=== PATIENT | female | born 1930 | race Caucasian/White ===

== ENCOUNTER 2017-12-22 10:41 | Inpatient (IN) | payer OTHER ==
[~2017-12-22] VITALS: Ht 167.6 cm; Wt 70.3 kg
[2017-12-22] MEDS ORDERED: Cefepime HCl 2 GM in NS 110 ML IV STA (10:45)
[2017-12-22] MEDS ORDERED: Ipratropium 0.02% Inh Soln 2.5ml UD HHN ONE (10:45)
[2017-12-22] MEDS ORDERED: Acetaminophen 650 MG SUPP RECTAL ONE (10:45)
[2017-12-22 10:54] VITALS: BP 157/96
[2017-12-22] MEDS: Albuterol ud Inhalation HHN SCH ×5 (11:05→22:30)
[2017-12-22 11:54] LABS: HEMATOCRIT 39.2 % (37.0-47.0); HEMOGLOBIN 12.5 G/DL (12.0-16.0); MEAN CORPUSCULAR VOLUME 90 FL (80-99); PLATELET COUNT 187 K/UL (150-450); RED BLOOD COUNT 4.34 M/UL (4.20-5.40); RED CELL DISTRIBUTION WIDTH 13.9 % (11.6-14.8)
[2017-12-22 12:02] LABS: ANION GAP 7 mmol/L (5-15); BLOOD UREA NITROGEN 32 mg/dL (7-18); CARBON DIOXIDE 27 MMOL/L (21-32); CHLORIDE 105 MMOL/L (98-107); CREATININE 1.2 MG/DL (0.55-1.30); POTASSIUM 5.3 MMOL/L (3.5-5.1); SODIUM 139 MMOL/L (136-145)
[2017-12-22 12:10] LABS: APPEARANCE,URINE TURBID; BILIRUBIN, URINE NEGATIVE (NEGATIVE); COLOR,URINE PALE YELLOW; GLUCOSE, URINE (UA) 2+ (NEGATIVE); KETONES,URINE NEGATIVE (NEGATIVE); LEUKOCYTE ESTERASE ,URINE 2+ (NEGATIVE); NITRITE,URINE NEGATIVE (NEGATIVE); PH,URINE 5 (4.5-8.0); PROTEIN,URINE 1+ (NEGATIVE); UROBILINOGEN,URINE NORMAL MG/DL (0.0-1.0)
[2017-12-22 12:13] LABS: ALANINE AMINOTRANSFERASE 28 U/L (12-78); ALBUMIN 2.9 G/DL (3.4-5.0); ALBUMIN/GLOBULIN RATIO 0.7 (1.0-2.7); ALKALINE PHOSPHATASE 98 U/L (46-116); ASPARTATE AMINO TRANSFERASE 34 U/L (15-37); BILIRUBIN,TOTAL 0.6 MG/DL (0.2-1.0); CREATINE KINASE 106 U/L (26-308)
[2017-12-22 12:44] VITALS: BP 139/81
[2017-12-22] MEDS ORDERED: HUMALOG100 UNIT/4 SUBQ (13:29)
[2017-12-22] MEDS ORDERED: ZYPREXA5 MG ORAL ×2 (13:29)
[2017-12-22] MEDS ORDERED: MIRTAZAPINE15 M3 ORAL (13:29)
[2017-12-22] MEDS ORDERED: IPRATROPIU0.2 MG/1 M HHN (13:29)
[2017-12-22] MEDS ORDERED: XOPENEX0.5 MG HHN (13:29)
[2017-12-22] MEDS ORDERED: FLORASTOR250 MG ORAL (13:29)
[2017-12-22] MEDS ORDERED: ADVAIR 250-501 EACH INH (13:29)
[2017-12-22] MEDS ORDERED: LOPRESSOR25 M1 ORAL (13:29)
[2017-12-22] MEDS ORDERED: AMIODARONE HCL400 M1 ORAL (13:29)
[2017-12-22] MEDS ORDERED: ALBUTEROL2.5 MG/3 M INH (13:29)
[2017-12-22 13:30] VITALS: BP 119/68
--- NOTE | 2017-12-22 14:13 | Diagnostic Imaging Report ---
Indication: Shortness of breath, respiratory distress Technique: One view of the chest Comparison: None Findings: Dense consolidation is seen in the left midlung equivocal areas of interstitial opacity are seen in the right lung. Right lung otherwise clear. Pleural spaces are clear. Impression: Left midlung infiltrate, suspect pneumonia
[2017-12-22] MEDS ORDERED: Levalbuterol Inh UD 1.25mg/0.5ml HHN PRN (15:30)
[2017-12-22] MEDS ORDERED: Ipratropium 0.02% Inh Soln 2.5ml UD HHN PRN (15:30)
[2017-12-22 16:00] VITALS: BP 96/58
[2017-12-22] MEDS ORDERED: cefTRIAXone 1 GM in D5W 55 ML IVPB SCH (17:00)
[2017-12-22] MEDS: NovoLOG Insulin Flexpen SUBQ SCH ×2 (17:03→21:52)
[2017-12-22 20:00] VITALS: BP 100/44
[2017-12-22] MEDS ORDERED: Milk of Magnesia 30ml Ud ORAL PRN (21:00)
[2017-12-22] MEDS ORDERED: Zolpidem 5mg tab ORAL PRN (21:00)
[2017-12-22] MEDS ORDERED: Advair 250/50 Inhaler - 14 dose INH SCH (21:00)
[2017-12-22] MEDS ORDERED: Vancomycin 1gm in D5W 275ml IVPB SCH (21:00)
[2017-12-22] MEDS: OLANZapine 2.5mg tab ORAL SCH (21:47)
[2017-12-22] MEDS: Heparin 5000 units/ml inj SUBQ SCH (21:51)
[2017-12-22] MEDS: Piperacillin/Tazobactam 3.375 GM in NS 110 ML IVPB SCH (22:57)
[2017-12-23] VITALS: BP 98/36
--- NOTE | 2017-12-23 00:23 | Emergency Room Report ---
History of Present Illness General Chief Complaint: Dyspnea/Respdistress Source: Family Member, EMS Present Illness HPI Patient being treated for UTI on Bactrim. Today noted to have cough, decreased O2 sat and AMS. Patient unable to provide history. Glucose not low in field. Distant h/o smoking. H/O dementia. Last hospitalization had difficulty with agitation. DNR - selective treatment - not intubate or CPR. Daughter POA. No other hx available. Allergies: Coded Allergies: FLUTICASONE (Verified Allergy, Unknown, 12/22/17) SALMETEROL (Verified Allergy, Unknown, 12/22/17) Patient History Past Medical History: see triage record Past Surgical History: hysterectomy Social History: Reports: smoking - prior Social History Narrative SNF Last Menstrual Period: Post Now: No Reviewed Nursing Documentation: PMH: Agreed; PSxH: Agreed Nursing Documentation-PMH Past Medical History: No History, Except For Hx Cardiac Problems: Yes Hx Hypertension: Yes Hx Asthma: Yes Hx COPD: Yes - 3 decades chainsmoker Hx Diabetes: Yes Hx Gastrointestinal Problems: Yes Hx Neurological Problems: Yes - dementia Hx Cerebrovascular Accident: No Hx Transient Ischemic Attacks: No Hx Dementia: Yes Hx Alzheimer's Disease: No Hx Parkinson's Disease: No Hx Meningitis: No Hx Encephalitis: No Hx Seizures: No Hx Epilepsy: No Hx Multiple Sclerosis: No Hx Cerebral Palsy: No Hx Amyotrophic Lat Sclerosis: No Hx Guillian-Concord Syndrome: No Hx Paralysis: No Hx Peripheral Neuropathy: No Hx Spinal Cord Injury: No Hx Head Trauma: No Hx Traumatic Brain Injury: No Hx Memory Loss: Yes - dementia Hx Concentration Difficulty: Yes Hx Speech Problem: Yes Hx Tremors: No Hx Vertigo: Yes Hx Dizziness: Yes Hx Syncope: Yes Hx Headaches: No Hx Aphasia: Yes Hx Dysphasia: Yes Hx Numbness: No Hx Weakness: Yes Hx Fatigue: Yes Hx Neurologic Surgery: No Hx Brain Shunt: No Physical Exam Vital Signs Date Time Temp Pulse Resp B/P (MAP) Pulse Ox O2 Delivery O2 Flow Rate FiO2 12/22/17 10:44 101.9 85 18 158/52 96 Nasal Cannula 4.0 101.8 12/22/17 11:05 40 Sp02 EP Interpretation: reviewed, abnormal - interpreted as low by me General Appearance: moderate distress, obese, Chronically Ill, Stupor Eyes: bilateral eye normal inspection, bilateral eye PERRL ENT: moist mucus membranes Neck: supple Respiratory: crackles, rales, rhonchi, wheezing, expiration, other - poor tidal volume Cardiovascular #1: regular rate, rhythm, edema - trace bilat Cardiovascular #2: 2+ radial (L) Gastrointestinal: soft, decreased bowel sounds, overweight Musculoskeletal: decreased range of motion, other - moving hands Neurologic: other - lethargic, min resonse to pain (but does), ebulic Psychiatric: other - stupor Reflexes: 1+ knee (R), 1+ knee (L) Skin: cyanosis, other - sallo, hot Procedures Critical Care Time Critical Care Time Total Critical Care Time: 30 min bedside evaluation and treatment excludes procedures (EKG). Reason for critical care: respiratory failure, BIPAP, pneumonia, discussion of level of care with daughter Possible complications: hypotension, hypertension, UT, shock, arrhythmias, metabolic acidosis, end organ damage, respiratory failure. Interventions: BIPAP, breathing treatments, antibiotics, antipyretics and hydration Course: Patient with hypopnea, rales and fever. Immediate BIPAP with fair stabilization of sats and breathing. Pneumonia on CXR and antibiotics begun. Discussion with daughter regarding illness and level of care (several discussions). Improved but serious on repeat re-evaluations. Consultations: nursing staff, EMS, family, RT, admitting MD Performed by: Dr. Santamaria Tolerated well condition = critical Medical Decision Making Diagnostic Impression: Primary Impression: Pneumonia Qualified Codes: J18.1 - Lobar pneumonia, unspecified organism Additional Impression: COPD exacerbation ER Course Patient presents with hypoxia, fever and cough. DDX: pneumonia, sepsis, bronchitis, exacerbation of COPD, AMI amongst others. Respiratory insufficiency identified and BIPAP begun immediately. EKG, CXR, labs with cultures and lactate ordered. Breathing treatments and antibiotics ordered due to clinical presentation. Significant hydration (but not excessive) ordered. Level of care discussed with daughter. Tylenol given. EKG artifact, but no injury. CXR with L infiltrate. Labs with elevated WBC, high normal lactate, min elevated K, elevated BUN, pyuria, normal troponin. Improved on BIPAP. Fever more elevated. Increased hydration with bolus. Fever slightly better. Discussed grave prognosis with daughter. Admit JOAQUIN (due to BIPAP), Dr. Miller. Laboratory Tests Test 12/22/17 11:30 12/22/17 11:40 12/22/17 13:05 12/22/17 20:01 White Blood Count 15.0 K/UL (4.8-10.8) H Red Blood Count 4.34 M/UL (4.20-5.40) Hemoglobin 12.5 G/DL (12.0-16.0) Hematocrit 39.2 % (37.0-47.0) Mean Corpuscular Volume 90 FL (80-99) Mean Corpuscular Hemoglobin 28.9 PG (27.0-31.0) Mean Corpuscular Hemoglobin Concent 31.9 G/DL (32.0-36.0) L Red Cell Distribution Width 13.9 % (11.6-14.8) Platelet Count 187 K/UL (150-450) Mean Platelet Volume 9.1 FL (6.5-10.1) Neutrophils (%) (Auto) % (45.0-75.0) Lymphocytes (%) (Auto) % (20.0-45.0) Monocytes (%) (Auto) % (1.0-10.0) Eosinophils (%) (Auto) % (0.0-3.0) Basophils (%) (Auto) % (0.0-2.0) Differential Total Cells Counted 100 Neutrophils % (Manual) 79 % (45-75) H Lymphocytes % (Manual) 6 % (20-45) L Monocytes % (Manual) 7 % (1-10) Eosinophils % (Manual) 3 % (0-3) Basophils % (Manual) 0 % (0-2) Band Neutrophils 5 % (0-8) Nucleated Red Blood Cells 1 /100 WBC Platelet Estimate Adequate Platelet Morphology Normal Hypochromasia 1+ Prothrombin Time 10.4 SEC (9.30-11.50) Prothrombin Time INR 1.0 (0.9-1.1) PTT 28 SEC (23-33) Sodium Level 139 MMOL/L (136-145) Potassium Level 5.3 MMOL/L (3.5-5.1) H Chloride Level 105 MMOL/L (98-107) Carbon Dioxide Level 27 MMOL/L (21-32) Anion Gap 7 mmol/L (5-15) Blood Urea Nitrogen 32 mg/dL (7-18) H Creatinine 1.2 MG/DL (0.55-1.30) Estimate Glomerular Filtration Rate mL/min (>60) Glucose Level 299 MG/DL (74-106) H Lactic Acid Level 2.10 mmol/L (0.66-2.22) 3.00 mmol/L (0.66-2.22) H Calcium Level 9.0 MG/DL (8.5-10.1) Total Bilirubin 0.6 MG/DL (0.2-1.0) Aspartate Amino Transferase (AST) 34 U/L (15-37) Alanine Aminotransferase (ALT) 28 U/L (12-78) Alkaline Phosphatase 98 U/L (46-116) Total Creatine Kinase 106 U/L (26-308) Troponin I 0.000 ng/mL (0.000-0.056) Pro-B-Type Natriuretic Peptide 2009 pg/mL (0-125) H Total Protein 7.1 G/DL (6.4-8.2) Albumin 2.9 G/DL (3.4-5.0) L Globulin 4.2 g/dL Albumin/Globulin Ratio 0.7 (1.0-2.7) L Urine Color Pale yellow Urine Appearance Turbid Urine pH 5 (4.5-8.0) Urine Specific [place] 1.010 (1.005-1.035) Urine Protein 1+ (NEGATIVE) H Urine Glucose (UA) 2+ (NEGATIVE) H Urine Ketones Negative (NEGATIVE) Urine Occult Blood 1+ (NEGATIVE) H Urine Nitrite Negative (NEGATIVE) Urine Bilirubin Negative (NEGATIVE) Urine Urobilinogen Normal MG/DL (0.0-1.0) Urine Leukocyte Esterase 2+ (NEGATIVE) H Urine RBC 2-4 /HPF (0 - 2) H Urine WBC 5-10 /HPF (0 - 2) H Urine Squamous Epithelial Cells Moderate /LPF (NONE/OCC) H Urine Bacteria Few /HPF (NONE) Arterial Blood pH 7.420 (7.350-7.450) Arterial Blood Partial Pressure CO2 35.0 mmHg (35.0-45.0) Arterial Blood Partial Pressure O2 56.1 mmHg (75.0-100.0) L Arterial Blood HCO3 22.3 mmol/L (22.0-26.0) Arterial Blood Oxygen Saturation 90.2 % (92.0-98.0) L Arterial Blood Base Excess -1.7 Alvino Test Positive Microbiology Date/Time Source Procedure Growth Status 12/22/17 11:40 Nasal Nares Influenza Types A,B Antigen (JIMY) - Final Complete EKG Diagnostic Results Rate: normal Rhythm: NSR ST Segments: no acute changes - artifact without STEMI Rhythm Strip Diag. Results EP Interpretation: yes Rhythm: NSR, no PVC's, no ectopy Chest X-Ray Diagnostic Results Chest X-Ray Diagnostic Results : Chest X-Ray Ordered: Yes # of Views/Limited/Complete: 1 View Indication: Shortness of Breath EP Interpretation: Yes Interpretation: no effusion, no pneumothorax, other - L upper infiltrate Impression: Other Electronically Signed by: Zachery Santamaria MD Last Vital Signs Date Time Temp Pulse Resp B/P (MAP) Pulse Ox O2 Delivery O2 Flow Rate FiO2 12/22/17 22:42 82 24 100 Bi-pap 80 12/22/17 20:00 98.4 100/44 98.4 12/22/17 11:04 3.0 Status: improved Disposition: ADMITTED INPATIENT Condition: Critical Referrals: NON PHYSICIAN (PCP) Zachery Santamaria M.D. Dec 23, 2017 00:23
--- NOTE | 2017-12-23 00:45 | History and Physical Report ---
DATE OF ADMISSION: 12/22/2017 REASON FOR ADMISSION: Pneumonia. HISTORY OF PRESENT ILLNESS: The patient is an 87-year-old female admitted for evidence of pneumonia on x-ray. The patient was seen and evaluated through the emergency room. The patient was brought in by the emergency medical from a [facility] for altered mental status, concerned for UTI, and also for low oxygen saturation. The patient also had a temperature of 101.5 degrees. The patient is alert and oriented x1 only. The patient's care discussed and reviewed. The patient's labs reviewed. The patient now being admitted for IV antibiotics and further management. PAST MEDICAL HISTORY: Notable for dysrhythmias, possible underlying obstructive lung disease, diabetes, and dementia with some psychotic features. MEDICATIONS: Reviewed. ALLERGIES: Reviewed. SOCIAL HISTORY: She resides in a [facility] facility. PHYSICAL EXAMINATION: GENERAL: The patient is an advanced age female, admitted for further care and management. VITAL SIGNS: The patient's vital signs reviewed and currently stable. The patient is currently on BiPAP on high FiO2. The blood pressure is 96/58. HEENT: Negative. LUNGS: Coarse rhonchi. CARDIAC: S1 and S2 distant. ABDOMEN: Soft. EXTREMITIES: No cyanosis. NEUROLOGICAL: Confused. LABORATORY DATA: Reviewed. White count 16. Chemistry is noted. Potassium 5.3. The BUN 32 and creatinine 1.2. X-ray with evidence of pneumonia. IMPRESSION: 1. Pneumonia, likely [facility]p acquired. 2. Leukocytosis, possible sepsis. 3. Mild hyperkalemia. 4. Acute renal failure. 5. History of chronic encephalopathy. RECOMMENDATIONS: Supportive care. We will maximize antibiotics as the patient is a mcfp patient. We will provide gram-negative and gram-positive coverage and respiratory care. We will obtain arterial blood gases, cultures and recommendations and monitor for further change in any further deterioration. Obtain swallow evaluation and BiPAP off as tolerated. Ceferino Miller M.D. DR: Beverly JOB#: [id number] CC:
[2017-12-23] MEDS: Albuterol ud Inhalation HHN SCH ×6 (03:25→22:29)
[2017-12-23 04:00] VITALS: BP 89/48
[2017-12-23] MEDS: Piperacillin/Tazobactam 3.375 GM in NS 110 ML IVPB SCH ×3 (06:06→22:20)
[2017-12-23] MEDS: NovoLOG Insulin Flexpen SUBQ SCH ×3 (06:35→18:13)
[2017-12-23 08:00] VITALS: BP 104/46
[2017-12-23 08:17] LABS: HEMOGLOBIN 9.9 G/DL (12.0-16.0); MEAN CORPUSCULAR VOLUME 90 FL (80-99); PLATELET COUNT 204 K/UL (150-450); RED BLOOD COUNT 3.46 M/UL (4.20-5.40); RED CELL DISTRIBUTION WIDTH 14.3 % (11.6-14.8)
[2017-12-23 08:21] LABS: WHITE BLOOD COUNT 32.7 K/UL (4.8-10.8)
[2017-12-23 08:29] LABS: ANION GAP 5 mmol/L (5-15); BLOOD UREA NITROGEN 40 mg/dL (7-18); CALCIUM 8.2 MG/DL (8.5-10.1); CARBON DIOXIDE 26 MMOL/L (21-32); CHLORIDE 109 MMOL/L (98-107); CREATININE 1.7 MG/DL (0.55-1.30); SODIUM 140 MMOL/L (136-145)
[2017-12-23] MEDS: OLANZapine 2.5mg tab ORAL SCH ×2 (09:00→22:11)
[2017-12-23] MEDS: Amiodarone 200mg tab ORAL SCH ×2 (09:00→12:56)
[2017-12-23] MEDS: Heparin 5000 units/ml inj SUBQ SCH ×2 (09:26→22:14)
--- NOTE | 2017-12-23 11:03 | Diagnostic Imaging Report ---
. Indication: NG tube placement Technique: XRAY Abdomen 1v Comparison: None Findings: There are 2 courses below level of diaphragms, tip and side port in the expected region of the stomach. Bowel gas pattern is nonspecific with overall paucity of bowel gas on the right. There is scoliosis and degenerative change of the spine. There is dense consolidation in the left lower lung, similar to prior chest radiograph. Impression: NG tube tip and side-port in the expected region of the stomach. Dense consolidation of the left lower lung.
--- NOTE | 2017-12-23 11:07 | Diagnostic Imaging Report ---
Indication: Dyspnea Technique: XRAY Chest 1v Comparison: 12/22/2018 Findings: Interval worsening of aeration with increasing opacity of the left mid and lower lung. Left-sided pleural fluid or atelectasis not excluded. The left heart border is obscured now. There are degenerative changes of the spine and shoulders. No acute osseous abnormality appreciated. Impression: Interval worsening of aeration with increasing confluent left mid/lower lung consolidation, most likely related to worsening pneumonia. Some current pleural fluid or left-sided atelectasis not excluded. Clinical correlation and follow-up exam recommended.
[2017-12-23 12:00] VITALS: BP 107/47
--- NOTE | 2017-12-23 15:00 | General Progress Note ---
Assessment/Plan Assessment/Plan 1. Pneumonia, likely snf acquired. 2. Leukocytosis, possible sepsis. 3. Mild hyperkalemia. 4. Acute renal failure. 5. History of chronic encephalopathy. PLAN NPO NGT feeds IV antibiotics ID evaluation BIPAP for now DVT prophylaxis monitor for change guarded Subjective Allergies: Coded Allergies: FLUTICASONE (Verified Allergy, Unknown, 12/22/17) SALMETEROL (Verified Allergy, Unknown, 12/22/17) Subjective unable on BIPAP d/w daughter update given DNR Objective Last 24 Hour Vital Signs Date Time Temp Pulse Resp B/P (MAP) Pulse Ox O2 Delivery O2 Flow Rate FiO2 12/23/17 12:40 76 19 98 Full Face 85 12/23/17 12:00 98.8 76 19 107/47 95 Bi-pap 80 98.8 12/23/17 12:00 85 12/23/17 12:00 73 12/23/17 11:00 76 20 95 Bi-pap 85 12/23/17 10:50 75 20 98 Bi-pap 85 12/23/17 10:45 75 20 98 Full Face 85 12/23/17 09:06 75 22 98 Facial 85 12/23/17 08:00 55 12/23/17 08:00 98.6 75 18 104/46 95 Bi-pap 80 98.6 12/23/17 08:00 85 12/23/17 07:32 86 16 95 Bi-pap 85 12/23/17 07:22 76 16 92 Bi-pap 85 12/23/17 07:20 76 16 92 Facial 85 12/23/17 04:52 83 22 96 Facial 70 12/23/17 04:12 82 12/23/17 04:00 98.0 85 20 89/48 95 Bi-pap 80 98.0 12/23/17 04:00 80 12/23/17 03:35 78 23 97 Bi-pap 70 12/23/17 03:24 78 23 97 Bi-pap 70 12/23/17 03:23 78 23 98 Facial 70 12/23/17 00:55 79 19 98 Facial 70 12/23/17 00:00 80 12/23/17 00:00 98.0 84 20 98/36 99 Bi-pap 80 98.0 12/22/17 23:44 79 12/22/17 22:42 82 24 100 Bi-pap 80 12/22/17 22:32 83 25 100 Bi-pap 80 12/22/17 22:31 83 25 100 Facial 80 12/22/17 20:55 89 23 93 Facial 80 12/22/17 20:00 98.4 86 26 100/44 95 Bi-pap 80 98.4 12/22/17 19:31 85 23 96 Bi-pap 70 12/22/17 19:22 83 24 94 Bi-pap 70 12/22/17 19:20 83 24 94 Facial 70 12/22/17 19:05 87 12/22/17 16:50 88 24 95 Facial 80 12/22/17 16:00 80 12/22/17 16:00 88 12/22/17 16:00 97.5 89 22 96/58 100 Bi-pap 80 97.5 12/22/17 15:22 92 27 93 Facial 80 Intake and Output 12/22/17 12/23/17 19:00 07:00 Intake Total 1055 ml 134.8 ml Output Total 150 ml Balance 905 ml 134.8 ml Intake IV Total 1055 ml 134.8 ml Output Urine Total 150 ml # Voids 1 2 Laboratory Tests 12/22/17 20:01: Arterial Blood pH 7.420, Arterial Blood Partial Pressure CO2 35.0, Arterial Blood Partial Pressure O2 56.1L, Arterial Blood HCO3 22.3, Arterial Blood Oxygen Saturation 90.2L, Arterial Blood Base Excess -1.7, Alvino Test Positive 12/23/17 08:00: White Blood Count 32.7#*H, Red Blood Count 3.46L, Hemoglobin 9.9L, Hematocrit 31.0L, Mean Corpuscular Volume 90, Mean Corpuscular Hemoglobin 28.7, Mean Corpuscular Hemoglobin Concent 32.0, Red Cell Distribution Width 14.3, Platelet Count 204, Mean Platelet Volume 8.0, Neutrophils (%) (Auto) , Lymphocytes (%) ( Auto) , Monocytes (%) (Auto) , Eosinophils (%) (Auto) , Basophils (%) (Auto) , Differential Total Cells Counted 100, Neutrophils % (Manual) 77H, Lymphocytes % (Manual) 4L, Monocytes % (Manual) 11H, Eosinophils % (Manual) 0, Basophils % ( Manual) 0, Band Neutrophils 8, Platelet Estimate Adequate, Platelet Morphology Normal, Hypochromasia 1+, Anisocytosis 1+, Sodium Level 140, Potassium Level 4.0 , Chloride Level 109H, Carbon Dioxide Level 26, Anion Gap 5, Blood Urea Nitrogen 40H, Creatinine 1.7H, Estimat Glomerular Filtration Rate , Glucose Level 173#H, Calcium Level 8.2L 12/23/17 08:02: Arterial Blood pH 7.410, Arterial Blood Partial Pressure CO2 38.6, Arterial Blood Partial Pressure O2 63.9L, Arterial Blood HCO3 24.2, Arterial Blood Oxygen Saturation 92.8, Arterial Blood Base Excess -0.2, Alvino Test Positive 12/23/17 09:15: Lactic Acid Level 2.20 12/23/17 11:30: Legionella pneumophila Group 1 Ab [Pending], Legionella pneumophilia IgM Group 1 [Pending], Mycoplasma pneumoniae IgG Antibody [Pending], Mycoplasma pneumoniae IgM Ab Titer [Pending] 12/23/17 12:55: Lactic Acid Level 1.00 Height (Feet): 5 Height (Inches): 6.00 Weight (Pounds): 155 Objective WDWN NAD reduced breath sounds bilaterally with some rhonchi [id number] without MRG NABS nontender no HSM no CC mild edema nonverbal nonfocal GAUDENCIO HAUSER Dec 23, 2017 15:00
[2017-12-23 16:00] VITALS: BP 120/64
--- NOTE | 2017-12-23 18:45 | Consultation ---
DATE OF CONSULTATION: 12/23/2017 INFECTIOUS DISEASE CONSULTATION CONSULTING PHYSICIAN: Maria Jama M.D. REFERRING PHYSICIAN: Ceferino Miller M.D. REASON FOR CONSULTATION: Pneumonia. HISTORY OF PRESENTING ILLNESS: This is an 87-year-old lady with history of dementia, diabetes, hypertension, asthma, COPD, emphysema, and depression who comes today in from a half-way facility with altered mental status as well as shortness of breath and fevers. She was found to have pneumonia, has been placed on a BiPAP and an Infectious Diseases consultation has been obtained for antibiotics. PAST MEDICAL HISTORY: 1. History of diabetes. 2. Hypertension. 3. Asthma. 4. COPD. 5. Emphysema. 6. Depression. 7. Dementia. 8. Dysrhythmia. MEDICATIONS: As an inpatient, she is on IV vancomycin, Cordarone, Florastor, Levaquin, Protonix, Zosyn, Remeron, Zyprexa, subcutaneous heparin, Ambien, milk of magnesia, albuterol, ceftriaxone, insulin, Atrovent, Tylenol, and Mylanta. ALLERGIES: Fluticasone as well as salmeterol. SOCIAL HISTORY: She used to be a smoker. She does not smoke anymore. She used to drink alcohol socially, does not drink anymore. No history of drug use. She is a resident of a half-way facility. FAMILY HISTORY: Noncontributory. REVIEW OF SYSTEMS: RESPIRATORY: She had fever and chills. She has cough. She has shortness of breath. No chest pain. CARDIAC: No chest pain. No palpitations. No dizziness. No syncope. GASTROINTESTINAL: No nausea. No vomiting. No abdominal pain or diarrhea. PHYSICAL EXAMINATION: VITAL SIGNS: Temperature of 98.6 degrees, T-max of 103.1 degrees, pulse of 75, respiratory rate 22, blood pressure 104/46 and O2 saturation of 98%. HEENT: The patient has left eye blindness. Mouth appears clean without thrush. NECK: Supple. No adenopathy. No JVD. The patient is on a BiPAP. CARDIOVASCULAR: Regular rate and rhythm. No murmurs. LUNGS: Clear to auscultation bilaterally. No crackles. No wheezes. ABDOMEN: Soft and nontender. No organomegaly. EXTREMITIES: No cyanosis, no clubbing, and no edema. LABORATORY AND DIAGNOSTIC DATA: White count of 32.7, hemoglobin 9.9, hematocrit 31, MCV 90, and platelet count of 204. Sodium 140, potassium 4, chloride 109, bicarbonate 26, BUN 40, creatinine 1.7 and glucose 173. Calcium 8.2. Total bilirubin 0.6. AST 34, ALT 28, and alkaline phosphatase 98. CK 106. Beta natriuretic peptide 2009. Total protein 7.1. Albumin 2.9. UA showing 5 to 10 white cells. Nasal swab was negative for influenza A and B. Chest x-ray showing left mid lung infiltrate, suspect pneumonia. ASSESSMENT: 1. This is an 87-year-old lady with history of diabetes, hypertension, and dementia, who comes in with community-acquired pneumonia versus aspiration pneumonia. 2. Respiratory failure. 3. Renal failure. PLAN: 1. Discontinue ceftriaxone and vancomycin. 2. Continue Zosyn and Levaquin. 3. We will start the patient on linezolid. 4. We will order sputum for Gram-stain and culture. 5. We will order for serum Legionella antibody. 6. We will order for mycoplasma serology. 7. We will follow up cultures and adjust antibiotics accordingly. I would like to thank, Dr. Miller, for this consultation. Maria Jama M.D. DR: KARI JOB#: [id number] CC: Ceferino Miller M.D.; Fax#: [phone]
[2017-12-23 20:00] VITALS: BP 120/53
[2017-12-23] MEDS ORDERED: Vancomycin 500 MG in D5W 110 ML IVPB SCH (21:00)
--- NOTE | 2017-12-23 21:52 | Wound Care Consultation ---
Wound Assessment Wound Assessment : Wound Number: 1 Wound Present on Admission: Yes New Wound: No Status Change of Wound: No Wound Location Body Site Modif: mid Wound Location Body Site: sacral Wound Type: pressure ulcer Adam Test: Does not Adam Pressure Ulcer Stage: I Wound Length: 3.5 Wound Width: 3.5 Percent of Wound [place]/Red: 100 Wound Drainage Amount: None Wound Drainage Odor: None/Absent Tissue Surrounding Wound: Erythemic Wound General Appearance: Reddened Wound Comment #1 Sacral stage I pressure ulcer Recommendation -Local wound care per protocol -Keep clean and dry -Optimize nutrition -Heel protector on both heels -Offload both heels -Low air loss SPR mattress -Assess and f/u accordingly for any changes BUCK MAI RN Dec 23, 2017 21:52
[2017-12-24] VITALS: BP 131/61
[2017-12-24] MEDS: NovoLOG Insulin Flexpen SUBQ SCH ×4 (00:06→18:01)
[2017-12-24] MEDS: Albuterol ud Inhalation HHN SCH ×6 (03:19→23:29)
[2017-12-24 04:00] VITALS: BP 114/48
[2017-12-24] MEDS: Piperacillin/Tazobactam 3.375 GM in NS 110 ML IVPB SCH ×3 (05:48→22:03)
[2017-12-24 06:43] LABS: HEMOGLOBIN 10.1 G/DL (12.0-16.0); MEAN CORPUSCULAR VOLUME 89 FL (80-99); PLATELET COUNT 189 K/UL (150-450); RED BLOOD COUNT 3.26 M/UL (4.20-5.40)
[2017-12-24 06:44] LABS: ANION GAP 8 mmol/L (5-15); BLOOD UREA NITROGEN 49 mg/dL (7-18); CALCIUM 8.7 MG/DL (8.5-10.1); CARBON DIOXIDE 25 MMOL/L (21-32); CHLORIDE 112 MMOL/L (98-107); CREATININE 1.5 MG/DL (0.55-1.30); POTASSIUM 3.9 MMOL/L (3.5-5.1); SODIUM 145 MMOL/L (136-145)
[2017-12-24 08:00] VITALS: BP 114/46
[2017-12-24 08:31] LABS: WHITE BLOOD COUNT 28.5 K/UL (4.8-10.8)
[2017-12-24] MEDS: OLANZapine 2.5mg tab ORAL SCH ×2 (09:02→20:12)
[2017-12-24] MEDS: Amiodarone 200mg tab ORAL SCH (09:02)
[2017-12-24] MEDS: Heparin 5000 units/ml inj SUBQ SCH ×2 (09:03→20:14)
--- NOTE | 2017-12-24 09:05 | General Progress Note ---
Assessment/Plan Assessment/Plan 1. Pneumonia, likely correction acquired. 2. Leukocytosis, possible sepsis. 3. Mild hyperkalemia. 4. Acute renal failure. 5. History of chronic encephalopathy. PLAN NPO NGT feeds IV antibiotics ID evaluation BIPAP for now DVT prophylaxis impression, plan, and exam edited and reviewed in detail care discussed with RN Subjective Allergies: Coded Allergies: FLUTICASONE (Verified Allergy, Unknown, 12/22/17) SALMETEROL (Verified Allergy, Unknown, 12/22/17) Subjective unable on BIPAP update given DNR Objective Last 24 Hour Vital Signs Date Time Temp Pulse Resp B/P (MAP) Pulse Ox O2 Delivery O2 Flow Rate FiO2 12/24/17 08:36 22 96 12/24/17 07:08 94 22 98 Non-Rebreather 15.0 100 12/24/17 06:57 93 24 96 12/24/17 06:57 93 24 96 Non-Rebreather 15.0 100 12/24/17 04:00 85 12/24/17 04:00 97.4 80 22 114/48 97 Bi-pap 85 97.4 12/24/17 03:45 85 12/24/17 03:35 78 20 97 Non-Rebreather 100 12/24/17 03:20 79 22 98 Full Face 85 12/24/17 03:19 80 22 98 Bi-pap 85 12/24/17 00:46 92 21 96 Full Face 85 12/24/17 00:00 87.0 97 23 131/61 96 Bi-pap 85 87.0 12/24/17 00:00 85 12/23/17 23:50 92 12/23/17 22:38 81 20 97 Bi-pap 85 12/23/17 22:33 87 26 97 Full Face 85 12/23/17 22:29 83 26 97 Bi-pap 85 12/23/17 20:04 74 20 93 Non-Rebreather 100 12/23/17 20:00 97.8 84 22 120/53 96 Bi-pap 85 97.8 12/23/17 20:00 85 12/23/17 20:00 82 12/23/17 19:49 87 19 95 Non-Rebreather 100 12/23/17 16:00 85 12/23/17 16:00 78 12/23/17 16:00 98.4 86 18 120/64 98 Bi-pap 85 98.4 12/23/17 15:24 75 20 97 Bi-pap 85 12/23/17 15:14 74 19 100 Bi-pap 85 12/23/17 15:11 74 19 100 Full Face 85 12/23/17 12:40 76 19 98 Full Face 85 12/23/17 12:00 98.8 76 19 107/47 95 Bi-pap 85 98.8 12/23/17 12:00 85 12/23/17 12:00 73 12/23/17 11:00 76 20 95 Bi-pap 85 12/23/17 10:50 75 20 98 Bi-pap 85 12/23/17 10:45 75 20 98 Full Face 85 12/23/17 09:06 75 22 98 Facial 85 Intake and Output 12/23/17 12/24/17 19:00 07:00 Intake Total 392.7 ml 763.0 ml Output Total 250 ml 400 ml Balance 142.7 ml 363.0 ml Intake Free Water 60 ml 100 ml IV Total 167.7 ml 143.0 ml Tube Feeding 135 ml 520 ml Other 30 ml Output Urine Total 250 ml 400 ml Laboratory Tests 12/23/17 09:15: Lactic Acid Level 2.20 12/23/17 11:30: Legionella pneumophila Group 1 Ab [Pending], Legionella pneumophilia IgM Group 1 [Pending], Mycoplasma pneumoniae IgG Antibody [Pending], Mycoplasma pneumoniae IgM Ab Titer [Pending] 12/23/17 12:55: Lactic Acid Level 1.00 12/24/17 05:55: White Blood Count 28.5*H, Red Blood Count 3.26L, Hemoglobin 10.1L, Hematocrit 29.0L, Mean Corpuscular Volume 89, Mean Corpuscular Hemoglobin 30.9, Mean Corpuscular Hemoglobin Concent 34.6, Red Cell Distribution Width 14.0, Platelet Count 189, Mean Platelet Volume 8.2, Neutrophils (%) (Auto) , Lymphocytes (%) ( Auto) , Monocytes (%) (Auto) , Eosinophils (%) (Auto) , Basophils (%) (Auto) , Neutrophils % (Manual) [Pending], Lymphocytes % (Manual) [Pending], Platelet Estimate [Pending], Platelet Morphology [Pending], Sodium Level 145, Potassium Level 3.9, Chloride Level 112H, Carbon Dioxide Level 25, Anion Gap 8, Blood Urea Nitrogen 49H, Creatinine 1.5H, Estimat Glomerular Filtration Rate , Glucose Level 183H, Calcium Level 8.7 12/24/17 07:09: Arterial Blood pH 7.400, Arterial Blood Partial Pressure CO2 39.8, Arterial Blood Partial Pressure O2 78.3, Arterial Blood HCO3 24.5, Arterial Blood Oxygen Saturation 95.1, Arterial Blood Base Excess -0.1, Alvino Test Positive Height (Feet): 5 Height (Inches): 6.00 Weight (Pounds): 155 Objective WDWN NAD reduced breath sounds bilaterally with minimal rhonchi [id number] without MRG NABS nontender no HSM no CC mild edema nonverbal nonfocal GAUDENCIO HAUSER Dec 24, 2017 09:05
[2017-12-24] MEDS ORDERED: NS 275ml ONE (09:51)
[2017-12-24] MEDS ORDERED: Tubing IV Secondary IV ONE (09:51)
--- NOTE | 2017-12-24 10:35 | Diagnostic Imaging Report ---
Indication: Shortness of breath Technique: XRAY Chest 1v Comparison: 12/23/2017 Findings: The left hemithorax is completely opacified. Mild interstitial edema of the right lung is seen. Nasogastric tube is within the stomach. Cardiac silhouette is obscured. Osseous structures are stable. Impression: Completely opacified left hemithorax could represent lung collapse. Underlying pleural fluid not excluded. Clinical correlation recommended. Findings discussed with Dr. Miller at 1030 hours by phone.
--- NOTE | 2017-12-24 10:47 | Infectious Diseases Prog Note ---
Assessment/Plan Assessment/Plan antibiotics : linezolid, zosyn, doxycycline A 1. pneumonia 2. respiratory failure 3. leucocytosis improving 4. renal failure improving 5. diabetes mellitus 6. hypertension P 1. continue zosyn, doxycycline 2. d/c linezolid 3. will follow up cultures Subjective ROS Limited/Unobtainable: Yes Allergies: Coded Allergies: FLUTICASONE (Verified Allergy, Unknown, 12/22/17) SALMETEROL (Verified Allergy, Unknown, 12/22/17) Objective Vital Signs Last 24 Hour Vital Signs Date Time Temp Pulse Resp B/P (MAP) Pulse Ox O2 Delivery O2 Flow Rate FiO2 12/24/17 09:56 96 Non-Rebreather 15.0 100 12/24/17 09:56 Non-Rebreather 15.0 100 12/24/17 08:36 22 96 12/24/17 08:00 98.1 87 26 114/46 97 Non-Rebreather 15.0 98.1 12/24/17 07:08 94 22 98 Non-Rebreather 15.0 100 12/24/17 06:57 93 24 96 12/24/17 06:57 93 24 96 Non-Rebreather 15.0 100 12/24/17 04:00 85 12/24/17 04:00 97.4 80 22 114/48 97 Bi-pap 85 97.4 12/24/17 03:45 85 12/24/17 03:35 78 20 97 Non-Rebreather 100 12/24/17 03:20 79 22 98 Full Face 85 12/24/17 03:19 80 22 98 Bi-pap 85 12/24/17 00:46 92 21 96 Full Face 85 12/24/17 00:00 87.0 97 23 131/61 96 Bi-pap 85 87.0 12/24/17 00:00 85 12/23/17 23:50 92 12/23/17 22:38 81 20 97 Bi-pap 85 12/23/17 22:33 87 26 97 Full Face 85 12/23/17 22:29 83 26 97 Bi-pap 85 12/23/17 20:04 74 20 93 Non-Rebreather 100 12/23/17 20:00 97.8 84 22 120/53 96 Bi-pap 85 97.8 12/23/17 20:00 85 12/23/17 20:00 82 12/23/17 19:49 87 19 95 Non-Rebreather 100 12/23/17 16:00 85 12/23/17 16:00 78 12/23/17 16:00 98.4 86 18 120/64 98 Bi-pap 85 98.4 12/23/17 15:24 75 20 97 Bi-pap 85 12/23/17 15:14 74 19 100 Bi-pap 85 12/23/17 15:11 74 19 100 Full Face 85 12/23/17 12:40 76 19 98 Full Face 85 12/23/17 12:00 98.8 76 19 107/47 95 Bi-pap 85 98.8 12/23/17 12:00 85 12/23/17 12:00 73 12/23/17 11:00 76 20 95 Bi-pap 85 12/23/17 10:50 75 20 98 Bi-pap 85 12/23/17 10:45 75 20 98 Full Face 85 Height (Feet): 5 Height (Inches): 6.00 Weight (Pounds): 155 HEENT: other - off bipap Respiratory/Chest: lungs clear Cardiovascular: normal rate, regular rhythm, no gallop/murmur Abdomen: soft, non tender Extremities: no edema Microbiology Date/Time Source Procedure Growth Status 12/22/17 11:30 Blood Blood Culture - Preliminary NO GROWTH AFTER 24 HOURS Resulted 12/22/17 11:25 Blood Blood Culture - Preliminary NO GROWTH AFTER 24 HOURS Resulted 12/22/17 13:30 Nasal Nares MRSA Culture - Final NO METHICILLIN RESISTANT STAPH AUREUS... Complete 12/22/17 11:40 Nasal Nares Influenza Types A,B Antigen (JIMY) - Final Complete 12/22/17 13:30 Rectum VRE Culture - Final NO VANCOMYCIN RESISTANT ENTEROCOCCUS ... Complete Laboratory Tests Test 12/23/17 11:30 12/23/17 12:55 12/24/17 05:55 12/24/17 07:09 Legionella pneumophila Group 1 Ab Pending Legionella pneumophilia IgM Group 1 Pending Mycoplasma pneumoniae IgG Antibody Pending Mycoplasma pneumoniae IgM Ab Titer Pending Lactic Acid Level 1.00 mmol/L (0.66-2.22) White Blood Count 28.5 K/UL (4.8-10.8) *H Red Blood Count 3.26 M/UL (4.20-5.40) L Hemoglobin 10.1 G/DL (12.0-16.0) L Hematocrit 29.0 % (37.0-47.0) L Mean Corpuscular Volume 89 FL (80-99) Mean Corpuscular Hemoglobin 30.9 PG (27.0-31.0) Mean Corpuscular Hemoglobin Concent 34.6 G/DL (32.0-36.0) Red Cell Distribution Width 14.0 % (11.6-14.8) Platelet Count 189 K/UL (150-450) Mean Platelet Volume 8.2 FL (6.5-10.1) Neutrophils (%) (Auto) % (45.0-75.0) Lymphocytes (%) (Auto) % (20.0-45.0) Monocytes (%) (Auto) % (1.0-10.0) Eosinophils (%) (Auto) % (0.0-3.0) Basophils (%) (Auto) % (0.0-2.0) Neutrophils % (Manual) Pending Lymphocytes % (Manual) Pending Platelet Estimate Pending Platelet Morphology Pending Sodium Level 145 MMOL/L (136-145) Potassium Level 3.9 MMOL/L (3.5-5.1) Chloride Level 112 MMOL/L (98-107) H Carbon Dioxide Level 25 MMOL/L (21-32) Anion Gap 8 mmol/L (5-15) Blood Urea Nitrogen 49 mg/dL (7-18) H Creatinine 1.5 MG/DL (0.55-1.30) H Estimat Glomerular Filtration Rate mL/min (>60) Glucose Level 183 MG/DL (74-106) H Calcium Level 8.7 MG/DL (8.5-10.1) Arterial Blood pH 7.400 (7.350-7.450) Arterial Blood Partial Pressure CO2 39.8 mmHg (35.0-45.0) Arterial Blood Partial Pressure O2 78.3 mmHg (75.0-100.0) Arterial Blood HCO3 24.5 mmol/L (22.0-26.0) Arterial Blood Oxygen Saturation 95.1 % (92.0-98.0) Arterial Blood Base Excess -0.1 Alvino Test Positive Current Medications Medications (Trade) Dose Ordered Sig/Miguel Route PRN Reason Start Time Stop Time Status Last Admin Dose Admin Acetaminophen (Tylenol) 650 mg Q4H PRN ORAL Mild Pain/Temp > 100.5 12/22/17 15:30 01/21/18 15:29 Al Hydroxide/Mg Hydroxide (Mylanta) 30 ml Q6H PRN ORAL Abdominal cramps 12/22/17 15:30 01/21/18 15:29 Albuterol Sulfate (Proventil) 2.5 mg Q4HRT HHN 12/22/17 19:00 12/27/17 18:59 12/24/17 06:57 Amiodarone HCl (Cordarone) 200 mg DAILY ORAL 12/23/17 09:00 01/22/18 08:59 12/24/17 09:02 Dextrose (Dextrose 50%) 25 ml STAT PRN IV Hypoglycemia 12/22/17 15:45 01/21/18 15:44 Dextrose (Dextrose 50%) 50 ml STAT PRN IV Hypoglycemia 12/22/17 15:45 01/21/18 15:44 Doxycycline Monohydrate (Vibramycin) 100 mg EVERY 12 HOURS ORAL 12/23/17 11:00 12/30/17 10:59 12/24/17 09:09 Heparin Sodium (Porcine) (Heparin 5000 units/ml) 5,000 units EVERY 12 HOURS SUBQ 12/22/17 21:00 01/21/18 20:59 12/24/17 09:03 Insulin Aspart (NovoLOG) Q6HR SUBQ 12/23/17 18:00 01/21/18 16:29 12/24/17 05:50 Ipratropium [place] (Atrovent) 500 mcg Q6H PRN HHN Shortness of Breath 12/22/17 15:30 12/27/17 15:29 Linezolid (Zyvox) 600 mg EVERY 12 HOURS ORAL 12/23/17 10:45 12/28/17 10:44 12/24/17 09:02 Magnesium Hydroxide (Mom) 30 ml HSPRN PRN ORAL Constipation 12/22/17 21:00 01/21/18 20:59 Mirtazapine (Remeron) 15 mg BEDTIME ORAL 12/22/17 21:00 01/21/18 20:59 12/23/17 22:11 Olanzapine (ZyPREXA) 5 mg Q12HR ORAL 12/22/17 21:00 01/21/18 20:59 12/24/17 09:02 Pantoprazole (Protonix) 40 mg DAILY ORAL 12/23/17 09:00 01/22/18 08:59 12/24/17 09:02 Piperacillin Sod/ Tazobactam Sod 3.375 gm/Sodium Chloride 110 ml @ 27.5 mls/hr EVERY 8 HOURS IVPB 12/22/17 22:00 12/27/17 21:59 12/24/17 05:48 Saccharomyces Boulardii (Florastor) 250 mg DAILY ORAL 12/23/17 09:00 01/22/18 08:59 12/24/17 09:02 Zolpidem Tartrate (Ambien) 5 mg HSPRN PRN ORAL Insomnia 12/22/17 21:00 12/29/17 20:59 RONAL SUH Dec 24, 2017 10:47
[2017-12-24 12:00] VITALS: BP 126/48
[2017-12-24 16:00] VITALS: BP 125/52
[2017-12-24 20:00] VITALS: BP 135/52
[2017-12-25] VITALS: BP 148/68
[2017-12-25] MEDS: NovoLOG Insulin Flexpen SUBQ SCH ×5 (00:17→23:48)
[2017-12-25] MEDS: Albuterol ud Inhalation HHN SCH ×6 (02:14→22:34)
[2017-12-25 04:00] VITALS: BP 163/76
[2017-12-25] MEDS: Piperacillin/Tazobactam 3.375 GM in NS 110 ML IVPB SCH ×3 (05:22→21:12)
[2017-12-25 08:00] VITALS: BP 146/61
--- NOTE | 2017-12-25 09:46 | Diagnostic Imaging Report ---
Indication: Shortness of breath Technique: XRAY Chest 1v Comparison: 12/24/2017 Findings: Cardiac silhouette is obscured. There is again complete opacification of the left hemithorax. Interstitial opacities of the right lung are again seen. The osseous structures are stable. There is slight increase atelectasis or hazy infiltrate in the right base. Impression: Redemonstration of complete opacification of the left hemithorax. Slight increased hazy infiltrate or atelectasis in the right base. Findings discussed with the patient's nurse Rajesh at [address] Miller notified of the completely opacified left hemithorax on 12/24/2017.
[2017-12-25] MEDS: Amiodarone 200mg tab ORAL SCH (09:49)
[2017-12-25] MEDS: OLANZapine 2.5mg tab ORAL SCH ×2 (09:49→21:12)
[2017-12-25] MEDS: Heparin 5000 units/ml inj SUBQ SCH ×2 (09:51→21:14)
--- NOTE | 2017-12-25 10:47 | Infectious Diseases Prog Note ---
Assessment/Plan Assessment/Plan A: 1. pneumonia 2. respiratory failure 3. leucocytosis improving 4. renal failure improving 5. diabetes mellitus 6. hypertension 7. Left lung collapse P 1. continue zosyn, doxycycline 2. . will follow up cultures 3. case was D/W daughter in bedside Subjective ROS Limited/Unobtainable: Yes Respiratory: Reports: productive cough Allergies: Coded Allergies: FLUTICASONE (Verified Allergy, Unknown, 12/22/17) SALMETEROL (Verified Allergy, Unknown, 12/22/17) Objective Vital Signs Last 24 Hour Vital Signs Date Time Temp Pulse Resp B/P (MAP) Pulse Ox O2 Delivery O2 Flow Rate FiO2 12/25/17 08:00 98.0 83 20 146/61 93 98.0 12/25/17 07:51 83 12/25/17 06:43 94 20 93 Non-Rebreather 15.0 100 12/25/17 06:36 99 Non-Rebreather 15.0 100 12/25/17 06:36 Non-Rebreather 15.0 100 12/25/17 06:35 97 20 95 Non-Rebreather 15.0 100 12/25/17 04:00 98.1 93 20 163/76 94 Non-Rebreather 15.0 98.1 12/25/17 03:34 91 12/25/17 02:15 85 20 97 Non-Rebreather 15.0 100 12/25/17 02:14 83 18 96 Non-Rebreather 15.0 100 12/25/17 00:00 98.4 95 18 148/68 93 Non-Rebreather 15.0 98.4 12/25/17 00:00 89 12/24/17 23:29 94 20 93 Non-Rebreather 15.0 100 12/24/17 23:28 91 18 92 Non-Rebreather 15.0 100 12/24/17 20:18 83 12/24/17 20:00 98.9 97 17 135/52 92 Non-Rebreather 15.0 98.9 12/24/17 19:30 86 20 95 Non-Rebreather 15.0 100 12/24/17 19:29 82 18 94 Non-Rebreather 15.0 100 12/24/17 19:28 Non-Rebreather 15.0 100 4/21/18 19:28 93 Non-Rebreather 15.0 100 12/24/17 16:00 98.2 97 22 125/52 97 Non-Rebreather 15.0 98.2 12/24/17 16:00 84 12/24/17 14:30 82 18 92 Non-Rebreather 15.0 100 12/24/17 14:20 80 18 96 Non-Rebreather 15.0 100 12/24/17 12:00 88 12/24/17 12:00 97.9 88 22 126/48 97 Non-Rebreather 15.0 97.9 12/24/17 10:59 88 20 96 Non-Rebreather 15.0 100 12/24/17 10:48 80 22 97 Non-Rebreather 15.0 100 Height (Feet): 5 Height (Inches): 6.00 Weight (Pounds): 155 HEENT: normocephalic, other - Oxygen by rebreathing mask Respiratory/Chest: other - few rhonchi in R, absent sounds on left Cardiovascular: normal rate Abdomen: soft, non tender, other - NGT feeding Extremities: no edema Neurologic/Psychiatric: unresponsiveness Microbiology Date/Time Source Procedure Growth Status 12/23/17 09:15 Blood Blood Culture - Preliminary NO GROWTH AFTER 24 HOURS Resulted 12/23/17 09:15 Blood Blood Culture - Preliminary NO GROWTH AFTER 24 HOURS Resulted 12/22/17 11:30 Blood Blood Culture - Preliminary NO GROWTH AFTER 48 HOURS Resulted 12/22/17 11:25 Blood Blood Culture - Preliminary NO GROWTH AFTER 48 HOURS Resulted 12/23/17 19:55 Sputum Gram Stain Pending Resulted 12/23/17 19:55 Sputum Sputum Culture - Preliminary NORMAL UPPER RESPIRATORY MAGDIEL AT 24 ... Resulted 12/22/17 13:30 Nasal Nares MRSA Culture - Final NO METHICILLIN RESISTANT STAPH AUREUS... Complete 12/22/17 11:40 Nasal Nares Influenza Types A,B Antigen (JIMY) - Final Complete 12/22/17 13:30 Rectum VRE Culture - Final NO VANCOMYCIN RESISTANT ENTEROCOCCUS ... Complete Current Medications Medications (Trade) Dose Ordered Sig/Miguel Route PRN Reason Start Time Stop Time Status Last Admin Dose Admin Acetaminophen (Tylenol) 650 mg Q4H PRN ORAL Mild Pain/Temp > 100.5 12/22/17 15:30 01/21/18 15:29 Al Hydroxide/Mg Hydroxide (Mylanta) 30 ml Q6H PRN ORAL Abdominal cramps 12/22/17 15:30 01/21/18 15:29 Albuterol Sulfate (Proventil) 2.5 mg Q4HRT HHN 12/22/17 19:00 12/27/17 18:59 12/25/17 06:35 Amiodarone HCl (Cordarone) 200 mg DAILY ORAL 12/23/17 09:00 01/22/18 08:59 12/25/17 09:49 Dextrose (Dextrose 50%) 25 ml STAT PRN IV Hypoglycemia 12/22/17 15:45 01/21/18 15:44 Dextrose (Dextrose 50%) 50 ml STAT PRN IV Hypoglycemia 12/22/17 15:45 01/21/18 15:44 Doxycycline Monohydrate (Vibramycin) 100 mg EVERY 12 HOURS ORAL 12/23/17 11:00 12/30/17 10:59 12/25/17 09:49 Heparin Sodium (Porcine) (Heparin 5000 units/ml) 5,000 units EVERY 12 HOURS SUBQ 12/22/17 21:00 01/21/18 20:59 12/25/17 09:51 Insulin Aspart (NovoLOG) Q6HR SUBQ 12/23/17 18:00 01/21/18 16:29 12/25/17 05:24 Ipratropium [place] (Atrovent) 500 mcg Q6H PRN HHN Shortness of Breath 12/22/17 15:30 12/27/17 15:29 Magnesium Hydroxide (Mom) 30 ml HSPRN PRN ORAL Constipation 12/22/17 21:00 01/21/18 20:59 Mirtazapine (Remeron) 15 mg BEDTIME ORAL 12/22/17 21:00 01/21/18 20:59 12/24/17 20:12 Olanzapine (ZyPREXA) 5 mg Q12HR ORAL 12/22/17 21:00 01/21/18 20:59 12/25/17 09:49 Pantoprazole (Protonix) 40 mg DAILY ORAL 12/23/17 09:00 01/22/18 08:59 12/25/17 09:50 Piperacillin Sod/ Tazobactam Sod 3.375 gm/Sodium Chloride 110 ml @ 27.5 mls/hr EVERY 8 HOURS IVPB 12/22/17 22:00 12/27/17 21:59 12/25/17 05:22 Saccharomyces Boulardii (Florastor) 250 mg DAILY ORAL 12/23/17 09:00 01/22/18 08:59 12/25/17 09:50 Zolpidem Tartrate (Ambien) 5 mg HSPRN PRN ORAL Insomnia 12/22/17 21:00 12/29/17 20:59 TITA DORSEY Dec 25, 2017 10:47
--- NOTE | 2017-12-25 11:55 | General Progress Note ---
Assessment/Plan Assessment/Plan 1. Pneumonia, likely assisted acquired. 2. Leukocytosis, possible sepsis. 3. Mild hyperkalemia. 4. Acute renal failure. 5. History of chronic encephalopathy. 6. left lung collapse with some effusion PLAN NPO NGT feeds daughter does not want suctioning or bronchoscopy and likely will proceed with hospice; to decide in am IV antibiotics ID evaluation BIPAP as needed DVT prophylaxis confirmed DNR impression, plan, and exam edited and reviewed in detail care discussed with RN Subjective Allergies: Coded Allergies: FLUTICASONE (Verified Allergy, Unknown, 12/22/17) SALMETEROL (Verified Allergy, Unknown, 12/22/17) Subjective unable oFF BIPAP update given to daughter DNR Objective Last 24 Hour Vital Signs Date Time Temp Pulse Resp B/P (MAP) Pulse Ox O2 Delivery O2 Flow Rate FiO2 12/25/17 11:07 89 20 93 Non-Rebreather 15.0 100 12/25/17 10:59 93 20 96 Non-Rebreather 15.0 100 12/25/17 08:00 98.0 83 20 146/61 93 98.0 12/25/17 07:51 83 12/25/17 06:43 94 20 93 Non-Rebreather 15.0 100 12/25/17 06:36 99 Non-Rebreather 15.0 100 12/25/17 06:36 Non-Rebreather 15.0 100 12/25/17 06:35 97 20 95 Non-Rebreather 15.0 100 12/25/17 04:00 98.1 93 20 163/76 94 Non-Rebreather 15.0 98.1 12/25/17 03:34 91 12/25/17 02:15 85 20 97 Non-Rebreather 15.0 100 12/25/17 02:14 83 18 96 Non-Rebreather 15.0 100 12/25/17 00:00 98.4 95 18 148/68 93 Non-Rebreather 15.0 98.4 12/25/17 00:00 89 12/24/17 23:29 94 20 93 Non-Rebreather 15.0 100 12/24/17 23:28 91 18 92 Non-Rebreather 15.0 100 12/24/17 20:18 83 12/24/17 20:00 98.9 97 17 135/52 92 Non-Rebreather 15.0 98.9 12/24/17 19:30 86 20 95 Non-Rebreather 15.0 100 12/24/17 19:29 82 18 94 Non-Rebreather 15.0 100 12/24/17 19:28 Non-Rebreather 15.0 100 12/24/17 19:28 93 Non-Rebreather 15.0 100 12/24/17 16:00 98.2 97 22 125/52 97 Non-Rebreather 15.0 98.2 12/24/17 16:00 84 12/24/17 14:30 82 18 92 Non-Rebreather 15.0 100 12/24/17 14:20 80 18 96 Non-Rebreather 15.0 100 12/24/17 12:00 88 12/24/17 12:00 97.9 88 22 126/48 97 Non-Rebreather 15.0 97.9 Intake and Output 12/24/17 12/25/17 19:00 07:00 Intake Total 922.0 ml 864.9 ml Output Total 550 ml Balance 372.0 ml 864.9 ml Intake Free Water 100 ml 50 ml IV Total 187.0 ml 154.9 ml Tube Feeding 605 ml 660 ml Other 30 ml Output Urine Total 550 ml # Bowel Movements 2 3 Labs Test 12/22/17 13:05 12/22/17 20:01 12/23/17 08:00 12/23/17 08:02 Lactic Acid Level 3.00 mmol/L (0.66-2.22) Arterial Blood pH 7.420 (7.350-7.450) 7.410 (7.350-7.450) Arterial Blood Partial Pressure CO2 35.0 mmHg (35.0-45.0) 38.6 mmHg (35.0-45.0) Arterial Blood Partial Pressure O2 56.1 mmHg (75.0-100.0) 63.9 mmHg (75.0-100.0) Arterial Blood HCO3 22.3 mmol/L (22.0-26.0) 24.2 mmol/L (22.0-26.0) Arterial Blood Oxygen Saturation 90.2 % (92.0-98.0) 92.8 % (92.0-98.0) Arterial Blood Base Excess -1.7 -0.2 Alvino Test Positive Positive White Blood Count 32.7 K/UL (4.8-10.8) Red Blood Count 3.46 M/UL (4.20-5.40) Hemoglobin 9.9 G/DL (12.0-16.0) Hematocrit 31.0 % (37.0-47.0) Mean Corpuscular Volume 90 FL (80-99) Mean Corpuscular Hemoglobin 28.7 PG (27.0-31.0) Mean Corpuscular Hemoglobin Concent 32.0 G/DL (32.0-36.0) Red Cell Distribution Width 14.3 % (11.6-14.8) Platelet Count 204 K/UL (150-450) Mean Platelet Volume 8.0 FL (6.5-10.1) Neutrophils (%) (Auto) % (45.0-75.0) Lymphocytes (%) (Auto) % (20.0-45.0) Monocytes (%) (Auto) % (1.0-10.0) Eosinophils (%) (Auto) % (0.0-3.0) Basophils (%) (Auto) % (0.0-2.0) Differential Total Cells Counted 100 Neutrophils % (Manual) 77 % (45-75) Lymphocytes % (Manual) 4 % (20-45) Monocytes % (Manual) 11 % (1-10) Eosinophils % (Manual) 0 % (0-3) Basophils % (Manual) 0 % (0-2) Band Neutrophils 8 % (0-8) Platelet Estimate Adequate Platelet Morphology Normal Hypochromasia 1+ Anisocytosis 1+ Sodium Level 140 MMOL/L (136-145) Potassium Level 4.0 MMOL/L (3.5-5.1) Chloride Level 109 MMOL/L (98-107) Carbon Dioxide Level 26 MMOL/L (21-32) Anion Gap 5 mmol/L (5-15) Blood Urea Nitrogen 40 mg/dL (7-18) Creatinine 1.7 MG/DL (0.55-1.30) Estimat Glomerular Filtration Rate mL/min (>60) Glucose Level 173 MG/DL (74-106) Calcium Level 8.2 MG/DL (8.5-10.1) Test 12/23/17 09:15 12/23/17 11:30 12/23/17 12:55 12/24/17 05:55 Lactic Acid Level 2.20 mmol/L (0.66-2.22) 1.00 mmol/L (0.66-2.22) White Blood Count 28.5 K/UL (4.8-10.8) Red Blood Count 3.26 M/UL (4.20-5.40) Hemoglobin 10.1 G/DL (12.0-16.0) Hematocrit 29.0 % (37.0-47.0) Mean Corpuscular Volume 89 FL (80-99) Mean Corpuscular Hemoglobin 30.9 PG (27.0-31.0) Mean Corpuscular Hemoglobin Concent 34.6 G/DL (32.0-36.0) Red Cell Distribution Width 14.0 % (11.6-14.8) Platelet Count 189 K/UL (150-450) Mean Platelet Volume 8.2 FL (6.5-10.1) Neutrophils (%) (Auto) % (45.0-75.0) Lymphocytes (%) (Auto) % (20.0-45.0) Monocytes (%) (Auto) % (1.0-10.0) Eosinophils (%) (Auto) % (0.0-3.0) Basophils (%) (Auto) % (0.0-2.0) Differential Total Cells Counted 100 Neutrophils % (Manual) 92 % (45-75) Lymphocytes % (Manual) 4 % (20-45) Monocytes % (Manual) 1 % (1-10) Eosinophils % (Manual) 2 % (0-3) Basophils % (Manual) 0 % (0-2) Metamyelocytes % 1 % (0-0) Band Neutrophils 0 % (0-8) Platelet Estimate Adequate Platelet Morphology Normal Sodium Level 145 MMOL/L (136-145) Potassium Level 3.9 MMOL/L (3.5-5.1) Chloride Level 112 MMOL/L (98-107) Carbon Dioxide Level 25 MMOL/L (21-32) Anion Gap 8 mmol/L (5-15) Blood Urea Nitrogen 49 mg/dL (7-18) Creatinine 1.5 MG/DL (0.55-1.30) Estimat Glomerular Filtration Rate mL/min (>60) Glucose Level 183 MG/DL (74-106) Calcium Level 8.7 MG/DL (8.5-10.1) Test 12/24/17 07:09 Arterial Blood pH 7.400 (7.350-7.450) Arterial Blood Partial Pressure CO2 39.8 mmHg (35.0-45.0) Arterial Blood Partial Pressure O2 78.3 mmHg (75.0-100.0) Arterial Blood HCO3 24.5 mmol/L (22.0-26.0) Arterial Blood Oxygen Saturation 95.1 % (92.0-98.0) Arterial Blood Base Excess -0.1 Alvino Test Positive Height (Feet): 5 Height (Inches): 6.00 Weight (Pounds): 155 Objective WDWN NAD reduced breath sounds left with some rhonchi [id number] without MRG NABS nontender no HSM no CC mild edema nonverbal agitated nonfocal GAUDENCIO HAUSER Dec 25, 2017 11:55
[2017-12-25 12:00] VITALS: BP 149/62
[2017-12-25 16:00] VITALS: BP 157/69
[2017-12-25 20:00] VITALS: BP 154/67
[2017-12-26] VITALS: BP 114/73
[2017-12-26] MEDS: Albuterol ud Inhalation HHN SCH ×3 (02:35→11:38)
[2017-12-26 04:00] VITALS: BP 154/58
[2017-12-26] MEDS: Piperacillin/Tazobactam 3.375 GM in NS 110 ML IVPB SCH (05:59)
[2017-12-26] MEDS: NovoLOG Insulin Flexpen SUBQ SCH ×2 (06:02→12:00)
[2017-12-26 08:00] VITALS: BP 154/69
--- NOTE | 2017-12-26 08:01 | General Progress Note ---
Assessment/Plan Assessment/Plan 1. Pneumonia, likely penitentiary acquired. 2. Leukocytosis, possible sepsis. 3. Mild hyperkalemia. 4. Acute renal failure. 5. History of chronic encephalopathy. 6. left lung collapse with some effusion PLAN NPO NGT feeds daughter wants hospice; she does not want bronch and would like to expedite dc IV antibiotics BIPAP -does not want she does not want suctioning DVT prophylaxis confirmed DNR and hospice impression, plan, and exam edited and reviewed in detail care discussed with RN Subjective Allergies: Coded Allergies: FLUTICASONE (Verified Allergy, Unknown, 12/22/17) SALMETEROL (Verified Allergy, Unknown, 12/22/17) Subjective unable increasing congestion DNR Objective Last 24 Hour Vital Signs Date Time Temp Pulse Resp B/P (MAP) Pulse Ox O2 Delivery O2 Flow Rate FiO2 12/26/17 07:29 92 22 94 Non-Rebreather 15.0 100 12/26/17 07:19 90 22 94 Non-Rebreather 15.0 100 12/26/17 07:18 Non-Rebreather 15.0 100 12/26/17 07:17 94 Non-Rebreather 15.0 100 12/26/17 04:00 98.0 83 23 154/58 94 Non-Rebreather 15.0 98.0 12/26/17 03:43 87 12/26/17 02:45 98 20 94 Non-Rebreather 15.0 100 12/26/17 02:35 86 20 93 Non-Rebreather 15.0 100 12/26/17 00:00 98.1 87 21 114/73 97 15.0 98.1 12/25/17 23:50 89 12/25/17 22:49 91 20 93 Non-Rebreather 15.0 100 12/25/17 22:35 91 20 94 Non-Rebreather 15.0 100 12/25/17 20:00 97.7 92 22 154/67 93 97.7 12/25/17 20:00 97.7 92 22 154/67 93 15.0 97.7 12/25/17 19:38 89 12/25/17 19:05 89 20 93 Non-Rebreather 15.0 100 12/25/17 19:02 Non-Rebreather 15.0 100 12/25/17 19:02 94 Non-Rebreather 15.0 100 12/25/17 18:56 89 20 95 Non-Rebreather 15.0 100 12/25/17 16:00 97.3 86 20 157/69 96 97.3 12/25/17 15:42 87 12/25/17 14:56 87 20 93 Non-Rebreather 15.0 100 12/25/17 14:46 82 20 96 Non-Rebreather 15.0 100 12/25/17 12:00 97.7 82 20 149/62 96 97.7 12/25/17 11:51 87 12/25/17 11:07 89 20 93 Non-Rebreather 15.0 100 12/25/17 10:59 93 20 96 Non-Rebreather 15.0 100 12/25/17 08:00 98.0 83 20 146/61 93 98.0 Intake and Output 12/25/17 12/26/17 19:00 07:00 Intake Total 230.1 ml 897.5 ml Output Total 1100 ml 700 ml Balance -869.9 ml 197.5 ml Intake Free Water 100 ml IV Total 175.1 ml 137.5 ml Tube Feeding 55 ml 660 ml Output Urine Total 1100 ml 700 ml # Bowel Movements 2 Height (Feet): 5 Height (Inches): 6.00 Weight (Pounds): 155 Objective WDWN NAD reduced breath sounds with worsening rhonchi [id number] without MRG NABS nontender no HSM no CC mild edema nonverbal reduced LOC nonfocal GAUDENCIO HAUSER Dec 26, 2017 08:01
[2017-12-26] MEDS ORDERED: Pantoprazole Inj IVP SCH (09:00)
[2017-12-26] MEDS: OLANZapine 2.5mg tab ORAL SCH (09:18)
[2017-12-26] MEDS: Amiodarone 200mg tab ORAL SCH (09:18)
[2017-12-26] MEDS: Heparin 5000 units/ml inj SUBQ SCH (09:21)
--- NOTE | 2017-12-26 11:21 | Infectious Diseases Prog Note ---
Assessment/Plan Assessment/Plan A: 1. pneumonia 2. respiratory failure 3. leucocytosis improving 4. renal failure improving 5. diabetes mellitus 6. hypertension 7. Left lung collapse P 1. continue zosyn, doxycycline 2. . Family wants hospice 3. case was D/W daughter in bedside Subjective ROS Limited/Unobtainable: Yes Respiratory: Reports: productive cough Allergies: Coded Allergies: FLUTICASONE (Verified Allergy, Unknown, 12/22/17) SALMETEROL (Verified Allergy, Unknown, 12/22/17) Objective Vital Signs Last 24 Hour Vital Signs Date Time Temp Pulse Resp B/P (MAP) Pulse Ox O2 Delivery O2 Flow Rate FiO2 12/26/17 08:00 89 12/26/17 08:00 97.9 91 20 154/69 95 Non-Rebreather 15.0 97.9 12/26/17 07:29 92 22 94 Non-Rebreather 15.0 100 12/26/17 07:19 90 22 94 Non-Rebreather 15.0 100 12/26/17 07:18 Non-Rebreather 15.0 100 12/26/17 07:17 94 Non-Rebreather 15.0 100 12/26/17 04:00 98.0 83 23 154/58 94 Non-Rebreather 15.0 98.0 12/26/17 03:43 87 12/26/17 02:45 98 20 94 Non-Rebreather 15.0 100 12/26/17 02:35 86 20 93 Non-Rebreather 15.0 100 12/26/17 00:00 98.1 87 21 114/73 97 15.0 98.1 12/25/17 23:50 89 12/25/17 22:49 91 20 93 Non-Rebreather 15.0 100 12/25/17 22:35 91 20 94 Non-Rebreather 15.0 100 12/25/17 20:00 97.7 92 22 154/67 93 97.7 12/25/17 20:00 97.7 92 22 154/67 93 15.0 97.7 12/25/17 19:38 89 12/25/17 19:05 89 20 93 Non-Rebreather 15.0 100 12/25/17 19:02 Non-Rebreather 15.0 100 12/25/17 19:02 94 Non-Rebreather 15.0 100 12/25/17 18:56 89 20 95 Non-Rebreather 15.0 100 12/25/17 16:00 97.3 86 20 157/69 96 97.3 12/25/17 15:42 87 12/25/17 14:56 87 20 93 Non-Rebreather 15.0 100 12/25/17 14:46 82 20 96 Non-Rebreather 15.0 100 12/25/17 12:00 97.7 82 20 149/62 96 97.7 12/25/17 11:51 87 Height (Feet): 5 Height (Inches): 6.00 Weight (Pounds): 155 HEENT: other - O2 by rebreathing mask Respiratory/Chest: lungs clear Cardiovascular: normal rate Abdomen: soft, non tender, other - NG tube feeding Extremities: no edema Neurologic/Psychiatric: other - opens eyes Microbiology Date/Time Source Procedure Growth Status 12/23/17 19:55 Sputum Gram Stain - Final Complete 12/23/17 19:55 Sputum Sputum Culture - Final NORMAL UPPER RESPIRATORY MAGDIEL AT 48 ... Complete Current Medications Medications (Trade) Dose Ordered Sig/Miguel Route PRN Reason Start Time Stop Time Status Last Admin Dose Admin Acetaminophen (Tylenol) 650 mg Q4H PRN ORAL Mild Pain/Temp > 100.5 12/22/17 15:30 01/21/18 15:29 Al Hydroxide/Mg Hydroxide (Mylanta) 30 ml Q6H PRN ORAL Abdominal cramps 12/22/17 15:30 01/21/18 15:29 Albuterol Sulfate (Proventil) 2.5 mg Q4HRT HHN 12/22/17 19:00 12/27/17 18:59 12/26/17 07:19 Amiodarone HCl (Cordarone) 200 mg DAILY ORAL 12/23/17 09:00 01/22/18 08:59 12/26/17 09:18 Dextrose (Dextrose 50%) 25 ml STAT PRN IV Hypoglycemia 12/22/17 15:45 01/21/18 15:44 Dextrose (Dextrose 50%) 50 ml STAT PRN IV Hypoglycemia 12/22/17 15:45 01/21/18 15:44 Doxycycline Monohydrate (Vibramycin) 100 mg EVERY 12 HOURS ORAL 12/23/17 11:00 12/30/17 10:59 12/26/17 09:18 Heparin Sodium (Porcine) (Heparin 5000 units/ml) 5,000 units EVERY 12 HOURS SUBQ 12/22/17 21:00 01/21/18 20:59 12/26/17 09:21 Insulin Aspart (NovoLOG) Q6HR SUBQ 12/23/17 18:00 01/21/18 16:29 12/26/17 06:02 Ipratropium [place] (Atrovent) 500 mcg Q6H PRN HHN Shortness of Breath 12/22/17 15:30 12/27/17 15:29 Magnesium Hydroxide (Mom) 30 ml HSPRN PRN ORAL Constipation 12/22/17 21:00 01/21/18 20:59 Mirtazapine (Remeron) 15 mg BEDTIME ORAL 12/22/17 21:00 01/21/18 20:59 12/25/17 21:12 Olanzapine (ZyPREXA) 5 mg Q12HR ORAL 12/22/17 21:00 01/21/18 20:59 12/26/17 09:18 Pantoprazole (Protonix) 40 mg DAILY IVP 12/26/17 09:00 01/25/18 08:59 12/26/17 09:18 Piperacillin Sod/ Tazobactam Sod 3.375 gm/Sodium Chloride 110 ml @ 27.5 mls/hr EVERY 8 HOURS IVPB 12/22/17 22:00 12/31/17 23:00 12/26/17 05:59 Saccharomyces Boulardii (Florastor) 250 mg DAILY ORAL 12/23/17 09:00 01/22/18 08:59 12/26/17 09:18 Zolpidem Tartrate (Ambien) 5 mg HSPRN PRN ORAL Insomnia 12/22/17 21:00 12/29/17 20:59 TITA DORSEY Dec 26, 2017 11:21
[2017-12-26 12:00] VITALS: BP 147/79
[2017-12-26] MEDS ORDERED: Tubing IV Secondary IV ONE (12:32)
[2017-12-26] MEDS ORDERED: NS 275ml ONE (12:32)
--- NOTE | 2017-12-27 18:56 | Discharge Summary ---
Discharge Summary Hospital Course Date of Admission Dec 22, 2017 at 11:39 Date of Discharge Dec 26, 2017 at 13:05 Admitting Diagnosis PNEUMONIA (DNR TREAT W/ BIPAP) HPI Juliet Ornelas is a 87 year old female who was admitted on Dec 22, 2017 at 11: 39 for Pneumonia Hospital Course [id number] Discharge Discharge Disposition Patient was discharged to [facility] under hospice Jenn Das NP Dec 27, 2017 18:56
--- NOTE | 2017-12-27 20:15 | Discharge Summary 2 SIG ---
DATE OF ADMISSION: 12/22/2017 DATE OF DISCHARGE: 12/26/2017 CONSULTANTS: Maria Jama M.D. BRIEF HOSPITAL COURSE: The patient is an 87-year-old female who from shelter was taken to [facility] for evaluation of altered mental status and low oxygenation. She has medical history notable for dysrhythmia and possible underlying obstructive lung disease, diabetes, and dementia. On evaluation at ED, O2 was noted to be decreased. Chest x-ray showed left infiltrate. Blood work showed increased WBC. Potassium of 5.3, BUN 32, creatinine 1.2. Troponin was negative. She was admitted for pneumonia. She was placed initially on BiPAP. She was placed on NPO. NGT was inserted. She was seen by Infectious Diseases specialist and was given initially ceftriaxone and vancomycin which later on was changed to Zosyn, Levaquin, and linezolid. She came in with sacral stage I pressure ulcer and was given local wound care. She had a chest x-ray done that showed left lung collapse with some effusion. Daughter does not want any suctioning or bronchoscopy and opted for the patient to be placed in hospice. Blood culture did not isolate any growth. Sputum culture with normal upper respiratory fela. The patient was eventually discharged to [facility] under hospice. The patient was discharged home under hospice. FINAL DIAGNOSES: 1. Acute respiratory failure. 2. Pneumonia likely shelter acquired. 3. Leukocytosis. 4. Hyperkalemia. 5. Acute renal failure. 6. Chronic encephalopathy. 7. Left lung collapse with effusion. 8. DNR/hospice care. Ceferino Miller M.D. I have been assigned to dictate discharge summary on this account and I was not involved in the patient's management. Jenn Das N.P. DR: Tomeka JOB#: [id number] CC:
== END 2017-12-26 13:05 | disposition hospice, home (50) | DRG 193 ==
LOC: EDBD 10:41 → EMR 11:08 → EDBEDREQ 11:10 → EDBD 11:39 → 2W 11:39 → EDBEDREQ 12:10 → 2W 15:01
PROC: 5A09357 Assistance with Respiratory Ventilation, Less than 24 Consecutive Hours, Continuous Positive Airway Pressure (ICD-10-PCS; principal; 2017-12-22)
PROC: 3E03328 Introduction of Oxazolidinones into Peripheral Vein, Percutaneous Approach (ICD-10-PCS; 2017-12-23)
DX: J18.9 Pneumonia, unspecified organism (principal); J96.00 Acute respiratory failure, unspecified whether with hypoxia or hypercapnia; G93.40 Encephalopathy, unspecified; N17.9 Acute kidney failure, unspecified; J98.19 Other pulmonary collapse; E87.5 Hyperkalemia; E11.9 Type 2 diabetes mellitus without complications; Z66 Do not resuscitate; L89.151 Pressure ulcer of sacral region, stage 1; J44.9 Chronic obstructive pulmonary disease, unspecified; F32.9 Major depressive disorder, single episode, unspecified; I49.9 Cardiac arrhythmia, unspecified; Z88.8 Allergy status to other drugs, medicaments and biological substances; Z87.891 Personal history of nicotine dependence
CPT/HCPCS: 36415; 36600; 71045; 74018; 80048; 80053; 81003; 82550; 82803; 83605; 83880; 84484; 85007; 85025; 85610; 85730; 86710; 86713; 86738; 87040; 87070; 87081; 87205; 93005; 93970; 94640; 94660; 94664; 94760; 99291; J1815